=== PATIENT | female | born 1990 ===

== ENCOUNTER 2020-03-02 06:48 | Inpatient (IN) | payer OTHER ==
[2020-03-02] MEDS ORDERED: Sodium Chloride 0.9% 10 ML Syringe FLUSH PRN (08:00)
[2020-03-02] MEDS ORDERED: Lidocaine 1% 50 ML MDV INJECT PRN (08:00)
[2020-03-02] MEDS ORDERED: Oxytocin/0.9 % Sodium Chloride 30 UNIT/500 ML BAG IV SCH ×2 (08:00→17:45)
[2020-03-02] MEDS ORDERED: Water For Irrigation,Sterile 1,000 ML Container IRR PRN (08:00)
[2020-03-02] MEDS ORDERED: Sodium Chloride 0.9% 2.5 ML Syringe FLUSH PRN (08:00)
[2020-03-02] MEDS ORDERED: Misoprostol 200 MCG Tab PO PRN (08:00)
[2020-03-02] MEDS ORDERED: Sodium Chloride 0.9% 10 ML SDV IV PRN (08:00)
[2020-03-02] MEDS ORDERED: Tranexamic Acid 1,000 MG in Sodium Chloride 0.9% 100 ML IV PRN (08:00)
[2020-03-02] MEDS ORDERED: Ondansetron 4 MG/2 ML SDV IVPUSH PRN (08:00)
[2020-03-02] MEDS ORDERED: Methylergonovine 0.2 MG/1 ML Amp IM PRN (08:00)
[2020-03-02] MEDS ORDERED: Butorphanol 1 MG/ML SDV IVPUSH PRN (08:00)
[2020-03-02] MEDS ORDERED: Carboprost Tromethamine 250 MCG/1 ML Amp IM PRN (08:00)
--- NOTE | 2020-03-02 08:49 | PCM.LDHP ---
L&D History of Present Illness - General Date of Service: 03/02/20 Admit Problem/Dx: Patient Status Order with Admit Dx/Problem 03/02/20 07:08 Patient Status [ADT] Routine 03/02/20 08:00 Patient Status [ADT] Routine Admission Diagnosis/Problem Admission Diagnosis/Problem 03/02/20 08:43 Marybeth is a 29 yo at 40+3 weeks gestation (RAD[facility] 02/28/2020) that presents to L&D today with C/O leaking of clear fluid and increasing intermittent uterine cramping. Reports adequate movement. Denies jung vaginal bleeding at this time. B pos, RI, GBS neg. EFW via [place] 7-8 lbs. Pertinent medical history includes: hypothyroidism. NKDA. Medications: PNV, levothyroxine 62.5 mg/day. Patient has no other complaints or concerns at this time. Source of Information: Patient History Limitations: Reports: No Limitations - Related Data Allergies/Adverse Reactions: Allergies Allergy/AdvReac Type Severity Reaction Status Date / Time No Known Allergies Allergy Verified 02/14/20 16:11 Home Medications: Home Meds Levothyroxine 62.5 mcg PO ACBREAKFAST 02/14/20 [History] Pnv No.95/Ferrous Fum/Folic AC [ Vitamin Tablet] 1 each PO DAILYBH 02/14/20 [History] Past Medical History HEENT History: Reports: None Cardiovascular History: Reports: None Respiratory History: Reports: None Gastrointestinal History: Reports: None Genitourinary History: Reports: None VALUATION CONSULTANT History: Reports: : 1 Para: 0 LMP (Approximate): Musculoskeletal History: Reports: None Neurological History: Reports: None Psychiatric History: Reports: None Endocrine/Metabolic History: Reports: Hypothyroidism Hematologic History: Reports: None Immunologic History: Reports: None Oncologic (Cancer) History: Reports: None Dermatologic History: Reports: None - Infectious Disease History Infectious Disease History: Reports: None - Past Surgical History HEENT Surgical History: Reports: None Cardiovascular Surgical History: Reports: None GI Surgical History: Reports: None Female Surgical History: Reports: None Musculoskeletal Surgical History: Reports: None Social & Family History - Family History HEENT: Reports: None Cardiac: Reports: Hypertension Respiratory: Reports: None GI: Reports: None : Reports: None OBGYN: Reports: None Musculoskeletal: Reports: None Neurological: Reports: None Psychiatric: Reports: None Endocrine/Metabolic: Reports: Diabetes, type II Hematologic: Reports: None Dermatologic: Reports: None Oncologic: Reports: None - Tobacco Use Tobacco Use Status *Q: Never Tobacco User Second Hand Smoke Exposure: No - Caffeine Use Caffeine Use: Reports: None - Recreational Drug Use Recreational Drug Use: No H&P Review of Systems - Review of Systems: Review Of Systems: Comprehensive ROS is negative, except as noted in HPI. General: Reports: No Symptoms HEENT: Reports: No Symptoms Pulmonary: Reports: No Symptoms Cardiovascular: Reports: No Symptoms Gastrointestinal: Reports: No Symptoms Genitourinary: Reports: No Symptoms Musculoskeletal: Reports: No Symptoms Skin: Reports: No Symptoms Psychiatric: Reports: No Symptoms Neurological: Reports: No Symptoms Hematologic/Lymphatic: Reports: No Symptoms Immunologic: Reports: No Symptoms L&D Exam - Exam Exam: See Below - Vital Signs Vital Signs: T 97.0; HR 65; RR 16; BP 113/78 (86); 99% on RA. Weight: 196 lb - OB Specific Fundal Height In cm: 39 Contraction Duration (sec): 60-90 Contraction Intensity: Mild to Moderate Movement: Active Heart Tones: Present Heart Tones per Min: 140 Heart Rate (FHR) Variability: Moderate (6-25 bmp) Presentation: Vertex (Confirmed via handheld TAUS) - Moore Score Moore Score Cervix Position: Posterior Moore Score Consistency: Firm Moore Score Effacement: 31-50% Moore Score Dilation: 1-2 cm Moore Score 's Station: -1 ,0 Moore Score Total: 4 - Exam General: Alert, Oriented, Cooperative HEENT: PERRLA, Conjunctiva Clear, EACs Clear, EOMI, Hearing Intact, Mucosa Moist & [place], Nares Patent, Normal Nasal Septum, Posterior Pharynx Clear, TMs Clear Neck: Supple, Trachea Midline Lungs: Clear to Auscultation, Normal Respiratory Effort Cardiovascular: Regular Rate, Regular Rhythm GI/Abdominal Exam: Normal Bowel Sounds, Soft, Non-Tender, Pelvis Stable Rectal Exam: Deferred Genitourinary: Normal external exam, Normal bimanual exam, Enlarged uterus (Gravid uterus), Other (Amniotic fluid leakage, confirmed with Amnisure) Back Exam: Normal Inspection, Full Range of Motion Extremities: Normal Inspection, Normal Range of Motion, Non-Tender, No Pedal Edema, Normal Capillary Refill Skin: Warm, Dry, Intact Neurological: Cranial Nerves Intact, Reflexes Equal Bilateral Psychiatric: Alert, Normal Affect, Normal Mood - Patient Data Lab Results Last 24 hrs: Laboratory Results - last 24 hr 03/02/20 03/02/20 Range/Units 06:50 06:55 Membrane Rupture POSITIVE SARS-CoV-2 RNA (DIEGO) NEGATIVE (NEGATIVE) - Problem List (1) SROM (spontaneous rupture of membranes) SNOMED Code(s): 211659189 ICD Code: [id number] - Status: Acute Priority: High Current Visit: Yes (2) 40 weeks gestation of SNOMED Code(s): 74717736 ICD Code: Z3A.40 - 40 WEEKS GESTATION OF Status: Acute Priority: High Current Visit: Yes Problem List Initiated/Reviewed/Updated: Yes Orders Last 24hrs: Active Orders 24 hr Category Date Time Status Patient Status [ADT] Routine ADT 03/02/20 08:00 Active Heart Tones [RC] CONTINUOUS Care 03/02/20 08:00 Active Non Stress Test [RC] PER UNIT ROUTINE Care 03/02/20 07:08 Active May Shower [RC] ASDIRECTED Care 03/02/20 08:00 Active Notify Provider [RC] PRN Care 03/02/20 08:00 Active Up ad Jazz [RC] ASDIRECTED Care 03/02/20 07:08 Active Vaginal Exam [RC] Click to Edit Care 03/02/20 07:08 Active Vital Signs [RC] PER UNIT ROUTINE Care 03/02/20 07:08 Active Regular Diet [DIET] Diet 03/02/20 Breakfast Active CBC W/O DIFF,HEMOGRAM [HEME] Routine Lab 03/02/20 08:00 Ordered RPR (SYPHILIS SERO) W/ RFLX [REF] Routine Lab 03/02/20 08:00 Ordered TYPE AND SCREEN [BBK] Routine Lab 03/02/20 08:00 Ordered Butorphanol [Stadol] Med 03/02/20 08:00 Active 1 mg IVPUSH Q1H PRN Carboprost Tromethamine [Hemabate DS] Med 03/02/20 08:00 Active 250 mcg IM ASDIRECTED PRN Lactated Ringers [Ringers, Lactated] 1,000 ml Med 03/02/20 08:00 Active IV ASDIRECTED Lidocaine 1% [Xylocaine 1%] Med 03/02/20 08:00 Active 50 ml INJECT ONETIME PRN Methylergonovine [Methergine] Med 03/02/20 08:00 Active 0.2 mg IM ASDIRECTED PRN Ondansetron [Zofran] Med 03/02/20 08:00 Active 4 mg IVPUSH Q6H PRN Oxytocin/0.9 % Sodium Chloride [Oxytocin 30 Unit/500 ML Med 03/02/20 08:00 Active -NS] 30 unit in 500 ml IV TITRATE Sodium Chloride 0.9% [Normal Saline] Med 03/02/20 08:00 Active 10 ml IV ASDIRECTED PRN Sodium Chloride 0.9% [Saline Flush] Med 03/02/20 08:00 Active 10 ml FLUSH ASDIRECTED PRN Sodium Chloride 0.9% [Saline Flush] Med 03/02/20 08:00 Active 2.5 ml FLUSH ASDIRECTED PRN Tranexamic Acid [Cyklokapron] 1,000 mg Med 03/02/20 08:00 Active Sodium Chloride 0.9% [Normal Saline] 100 ml IV ONETIME Water For Irrigation,Sterile [Sterile Water for Med 03/02/20 08:00 Active Irrigation] 1,000 ml IRR ASDIRECTED PRN miSOPROStoL [Cytotec] Med 03/02/20 08:00 Active 200 mcg PO ONETIME PRN Scalp Electrode [WOMSER] Per Unit Routine Oth 03/02/20 08:00 Ordered Peripheral IV Insertion Adult [OM.PC] Routine Oth 03/02/20 08:00 Ordered Resuscitation Status Routine Resus Stat 03/02/20 07:07 Ordered Medication Orders Butorphanol Tartrate (Stadol) 1 mg IVPUSH Q1H PRN PRN Reason: Pain Carboprost Tromethamine (Hemabate Ds) 250 mcg IM ASDIRECTED PRN PRN Reason: Post Hemorrhage Lactated Ringer's (Ringers, Lactated) 1,000 mls @ 150 mls/hr IV ASDIRECTED NIRAJ Oxytocin/Sodium Chloride (Oxytocin 30 Unit/500 Ml-Ns) 30 unit in 500 mls @ 999 mls/hr IV TITRATE NIRAJ Tranexamic Acid 1,000 mg/ (Sodium Chloride) 110 mls @ 660 mls/hr IV ONETIME PRN PRN Reason: Bleeding Lidocaine HCl (Xylocaine 1%) 50 ml INJECT ONETIME PRN PRN Reason: Laceration repair Methylergonovine Maleate (Methergine) 0.2 mg IM ASDIRECTED PRN PRN Reason: Post Hemorrhage Misoprostol (Cytotec) 200 mcg PO ONETIME PRN PRN Reason: Post Hemorrhage Ondansetron HCl (Zofran) 4 mg IVPUSH Q6H PRN PRN Reason: Nausea/Vomiting Sodium Chloride (Saline Flush) 10 ml FLUSH ASDIRECTED PRN PRN Reason: Keep Vein Open Sodium Chloride (Saline Flush) 2.5 ml FLUSH ASDIRECTED PRN PRN Reason: Keep Vein Open Sodium Chloride (Normal Saline) 10 ml IV ASDIRECTED PRN PRN Reason: IV Use Sterile Water (Sterile Water For Irrigation) 1,000 ml IRR ASDIRECTED PRN PRN Reason: delivery Assessment/Plan Comment:: SROM confirmed via Amnisure. Admit for observation in anticipation of of term viable . FHR Cat I. Spontaneous contractions noted. Expectant management, reassess cervical dilation ~1030 am. If no change has been make, may administer cytotec per orders. May ambulate and hydrotherapy as desired after reactive NST achieved; repeat NST per orders. May receive epidural if desired between 5-6 cm. See new orders. Dr. Carmona notified and agreeable with POC.
[2020-03-02] MEDS ORDERED: Terbutaline 1 MG/ML SDV SUBCUT PRN (17:39)
[2020-03-02] MEDS ORDERED: Levothyroxine 125 MCG Tab PO SCH (18:15)
[2020-03-02] MEDS: Lactated Ringers 1,000 ML IV SCH (19:00)
[2020-03-02] MEDS ORDERED: fentaNYL 100 MCG/2 ML SDV ONE (22:42)
[2020-03-02] MEDS ORDERED: Ropivacaine HCl/PF 100 ML ONE (22:42)
--- NOTE | 2020-03-02 23:05 | PCM.PREANE ---
Preanesthetic Assessment - Anesthesia/Transfusion/Family Hx Anesthesia History: No Prior Anesthesia Family History of Anesthesia Reaction: No - Physical Assessment NPO Status Date: 03/02/20 NPO Status Time: 18:00 Height: 1.68 m Weight: 88.904 kg ASA Class: 2 - Lab Values: Laboratory Last Values WBC 10.07 K/uL (4.0-11.0) 03/02/20 08:05 RBC 4.36 M/uL (4.30-5.90) 03/02/20 08:05 Hgb 12.8 g/dL (12.0-16.0) 03/02/20 08:05 Hct 38.3 % (36.0-46.0) 03/02/20 08:05 MCV 87.8 fL (80.0-98.0) 03/02/20 08:05 MCH 29.4 pg (27.0-32.0) 03/02/20 08:05 MCHC 33.4 g/dL (31.0-37.0) 03/02/20 08:05 RDW Std Deviation 45.6 fl (28.0-62.0) 03/02/20 08:05 RDW Coeff of Dot 14 % (11.0-15.0) 03/02/20 08:05 Plt Count 251 K/uL (150-400) 03/02/20 08:05 MPV 12.40 fL (7.40-12.00) H 03/02/20 08:05 Nucleated RBC % 0.0 /100WBC 03/02/20 08:05 Nucleated RBCs # 0 K/uL 03/02/20 08:05 Membrane Rupture POSITIVE 03/02/20 06:55 SARS-CoV-2 RNA ([place]) NEGATIVE (NEGATIVE) 03/02/20 06:50 Blood Type B POSITIVE 03/02/20 08:05 Antibody Screen NEGATIVE 03/02/20 08:05 - Allergies Allergies/Adverse Reactions: Allergies Allergy/AdvReac Type Severity Reaction Status Date / Time No Known Allergies Allergy Verified 02/14/20 16:11 - Acknowledgements Anesthesia Type Planned: Epidural Pt an Appropriate Candidate for the Planned Anesthesia: Yes Alternatives and Risks of Anesthesia Discussed w Pt/Guardian: Yes Pt/Guardian Understands and Agrees with Anesthesia Plan: Yes PreAnesthesia Questionnaire HEENT History: Reports: None Cardiovascular History: Reports: None Respiratory History: Reports: None Gastrointestinal History: Reports: None Genitourinary History: Reports: None BRAND STRATEGIST History: Reports: Musculoskeletal History: Reports: None Neurological History: Reports: None Psychiatric History: Reports: None Endocrine/Metabolic History: Reports: Hypothyroidism Hematologic History: Reports: None Immunologic History: Reports: None Oncologic (Cancer) History: Reports: None Dermatologic History: Reports: None - Infectious Disease History Infectious Disease History: Reports: None - Past Surgical History HEENT Surgical History: Reports: None Cardiovascular Surgical History: Reports: None GI Surgical History: Reports: None Female Surgical History: Reports: None Musculoskeletal Surgical History: Reports: None - SUBSTANCE USE Tobacco Use Status *Q: Never Tobacco User Second Hand Smoke Exposure: No Recreational Drug Use History: No - HOME MEDS Home Medications: Home Meds Levothyroxine 62.5 mcg PO ACBREAKFAST 02/14/20 [History] Pnv No.95/Ferrous Fum/Folic AC [ Vitamin Tablet] 1 each PO DAILYBH 02/14/20 [History] - CURRENT (IN HOUSE) MEDS Current Meds: Current Medications Butorphanol Tartrate (Stadol) 1 mg IVPUSH Q1H PRN PRN Reason: Pain Last Admin: 03/02/20 20:47 Dose: 1 mg Documented by: Carboprost Tromethamine (Hemabate Ds) 250 mcg IM ASDIRECTED PRN PRN Reason: Post Hemorrhage Lactated Ringer's (Ringers, Lactated) 1,000 mls @ 150 mls/hr IV ASDIRECTED NIRAJ Last Admin: 03/02/20 19:00 Dose: 150 mls/hr Documented by: Oxytocin/Sodium Chloride (Oxytocin 30 Unit/500 Ml-Ns) 30 unit in 500 mls @ 999 mls/hr IV TITRATE NIRAJ Tranexamic Acid 1,000 mg/ (Sodium Chloride) 110 mls @ 660 mls/hr IV ONETIME PRN PRN Reason: Bleeding Oxytocin/Sodium Chloride (Oxytocin 30 Unit/500 Ml-Ns) 30 unit in 500 mls @ 2 mls/hr IV TITRATE NIRAJ; Protocol Last Titration: 03/02/20 19:35 Dose: 4 munits/min, 4 mls/hr Documented by: Levothyroxine Sodium (Levothyroxine) 62.5 mcg PO ACBREAKFAST NIRAJ Lidocaine HCl (Xylocaine 1%) 50 ml INJECT ONETIME PRN PRN Reason: Laceration repair Methylergonovine Maleate (Methergine) 0.2 mg IM ASDIRECTED PRN PRN Reason: Post Hemorrhage Misoprostol (Cytotec) 200 mcg PO ONETIME PRN PRN Reason: Post Hemorrhage Ondansetron HCl (Zofran) 4 mg IVPUSH Q6H PRN PRN Reason: Nausea/Vomiting Sodium Chloride (Saline Flush) 10 ml FLUSH ASDIRECTED PRN PRN Reason: Keep Vein Open Sodium Chloride (Saline Flush) 2.5 ml FLUSH ASDIRECTED PRN PRN Reason: Keep Vein Open Sodium Chloride (Normal Saline) 10 ml IV ASDIRECTED PRN PRN Reason: IV Use Sterile Water (Sterile Water For Irrigation) 1,000 ml IRR ASDIRECTED PRN PRN Reason: delivery Terbutaline Sulfate (Brethine) 0.25 mg SUBCUT ASDIRECTED PRN PRN Reason: Tacysystole Discontinued Medications Fentanyl (Sublimaze) Confirm Administered Dose 100 mcg .ROUTE .STK-MED ONE Stop: 03/02/20 22:43 Ropivacaine (Naropin 0.2%) Confirm Administered Dose 100 mls @ as directed .ROUTE .STK-MED ONE Stop: 03/02/20 22:43
--- NOTE | 2020-03-02 23:09 | PCM.PRNOTE ---
- Free Text/Narrative Note: Anes Note Patient requests epidural for L&D. Sitting position. mohs surgeon used. Level L3-L4 midline approach, sterile technique. Chloraprep scrub to lumbar area. Sterile fenestrated drape applied. Epidural space easily achieved single attempt with ease using SASKIA technique. SASKIA at 3 cm. Cath threaded 5 cm wtih ease. Sterile clear adhesive dressing applied. 2345 Test 3 cc 1.5% lido with epi negative. 2348 Load 10 cc0.2% ropivicaine with 1 mcg cc fentanyl in slow divided doses. 2255 Pump started with 90 cc same solution. Rate is 8 cc hr with 6 cc q 20 min prn bolus. Marquez well. Time with patient [id number] Don Caballero TRAFFIC INCIDENT MANAGEMENT MANAGER
[2020-03-03] MEDS: Lactated Ringers 1,000 ML IV SCH ×3 (04:55→23:26)
[2020-03-03] MEDS ORDERED: Ropivacaine HCl/PF 100 ML ONE (09:23)
[2020-03-03] MEDS ORDERED: fentaNYL 100 MCG/2 ML SDV ONE ×2 (09:23→11:41)
--- NOTE | 2020-03-03 09:34 | PCM.PRNOTE ---
- Free Text/Narrative Note: Anes NOte Epidural infusion is complee. A new bag of 0.2% ropvicaine with 1 mcg cc fentanyl added was placed. A new rate of 4 cc hr with 4 cc q 20 min prn rate was set per request of nursing staff. Nursing says this patient is too comfortable and does not feel contractions enough to push effectively. Time with patient [id number] Don Caballero CRNA
[2020-03-03] MEDS ORDERED: Ampicillin 2 GM in Sodium Chloride 0.9% 100 ML IV ONE (11:06)
[2020-03-03] MEDS ORDERED: Ampicillin 1 GM in Sodium Chloride 0.9% 50 ML IV SCH (11:15)
[2020-03-03] MEDS ORDERED: Lidocaine 2% with EPINEPHrine 1:100,000 20 ML MDV ONE (11:39)
[2020-03-03] MEDS ORDERED: Morphine PF 10 MG/10 ML SDV ONE (11:41)
[2020-03-03] MEDS ORDERED: Citric Acid/Sodium Citrate Solution 30 ML Cup PO ONE (11:44)
[2020-03-03] MEDS ORDERED: ceFAZolin 2 GM in Premix Bag 1 BAG IV ONE (11:44)
[2020-03-03] MEDS ORDERED: Ketorolac 30 MG/ML SDV ONE (11:51)
[2020-03-03] MEDS ORDERED: Ondansetron 4 MG/2 ML SDV ONE (11:51)
[2020-03-03] MEDS ORDERED: Oxytocin 10 Units/1 ML SDV ONE (11:51)
[2020-03-03] MEDS ORDERED: Acetaminophen/oxyCODONE 325-5 MG Tab PO PRN ×2 (12:30→13:16)
[2020-03-03] MEDS ORDERED: Nalbuphine 10 MG/1 ML Vial IVPUSH PRN (12:30)
[2020-03-03] MEDS ORDERED: fentaNYL 100 MCG/2 ML SDV IVPUSH PRN (12:30)
[2020-03-03] MEDS ORDERED: diphenhydrAMINE 50 MG/ML SDV IVPUSH PRN (13:16)
[2020-03-03] MEDS ORDERED: Ondansetron 4 MG/2 ML SDV IVPUSH PRN (13:16)
[2020-03-03] MEDS ORDERED: Methylergonovine 0.2 MG/1 ML Amp IM PRN (13:16)
[2020-03-03] MEDS ORDERED: Bisacodyl 10 MG Supp RECTAL PRN (13:16)
[2020-03-03] MEDS ORDERED: Tranexamic Acid 1,000 MG in Sodium Chloride 0.9% 100 ML IV PRN (13:16)
[2020-03-03] MEDS ORDERED: Misoprostol 200 MCG Tab RECTAL PRN (13:16)
[2020-03-03] MEDS ORDERED: Oxytocin 10 Units/1 ML SDV IM PRN (13:16)
[2020-03-03] MEDS ORDERED: Lactated Ringers 1,000 ML IV SCH (13:30)
--- NOTE | 2020-03-03 13:39 | PCM.DEL ---
L & D Note - General Info Date of Service: 03/03/20 Mother's Due Date: 03/06/20 - Delivery Note Labor: Spontaneous Delivery Outcome: Livebirth Infant Delivery Method: Primary Presentation: Vertex (Confirmed via handheld TAUS) Nuchal Cord: Reduced Anesthesia Type: None, Spinal Amniotic Fluid Description: Meconium Stained Laceration: None Placenta: Intact, Spontaneous Estimated Blood Loss: 200 Score 1 min: 8 Score 5 min: 9 Delivery Comments (Free Text/Narrative):: 29YO G1 now P1 s/p primary low transverse due to failure to descent at 40+4w GA Patient came ruptured 03/02/20 at 8am. Progressed on her own to full dilation. But station would not progress pass 0. C section occurred 5hrs trying several maneuver to help the infant descent. Delivery uncomplicated. Baby found to be asynclitic. Induction Criteria - Induction Gestational Age >/= 39 wks: Yes Reassuring Monitoring Strip: No Absence of Tachy Systole: No - Augmentation Reassuring Monitoring Strip: No Absence of Tachy Systole: No - General Info Date of Service: 03/03/20 Admission Dx/Problem (Free Text): 29YO G1 now P1 s/p primary low transverse due to failure to descent at 40+4w GA Patient came ruptured 03/02/20 at 8am. Progressed on her own to full dilation. But station would not progress pass 0. Functional Status: Reports: Pain Controlled - Review of Systems General: Reports: No Symptoms HEENT: Reports: No Symptoms Pulmonary: Reports: No Symptoms Cardiovascular: Reports: No Symptoms Gastrointestinal: Reports: No Symptoms Genitourinary: Reports: No Symptoms Musculoskeletal: Reports: No Symptoms Skin: Reports: No Symptoms Neurological: Reports: No Symptoms Psychiatric: Reports: No Symptoms - Patient Data Weight - Most Recent: 88.904 kg Med Orders - Current: Current Medications Bisacodyl (Dulcolax) 10 mg RECTAL ONETIME PRN PRN Reason: Constipation Butorphanol Tartrate (Stadol) 1 mg IVPUSH Q1H PRN PRN Reason: Pain Last Admin: 03/02/20 20:47 Dose: 1 mg Documented by: Carboprost Tromethamine (Hemabate Ds) 250 mcg IM ASDIRECTED PRN PRN Reason: Post Hemorrhage Diphenhydramine HCl (Benadryl) 25 mg IVPUSH Q6H PRN PRN Reason: Itching or Nausea Docusate Sodium (Colace) 100 mg PO BID [facility] Emollient Ointment (Lansinoh Hpa) 0 gm TOP ASDIRECTED PRN PRN Reason: Sore Nipples Fentanyl (Sublimaze) 50 mcg IVPUSH Q5M PRN PRN Reason: Pain (severe 7-10) Lactated Ringer's (Ringers, Lactated) 1,000 mls @ 150 mls/hr IV ASDIRECTED [facility] Last Admin: 03/03/20 11:20 Dose: 150 mls/hr Documented by: Oxytocin/Sodium Chloride (Oxytocin 30 Unit/500 Ml-Ns) 30 unit in 500 mls @ 999 mls/hr IV TITRATE [facility] Tranexamic Acid 1,000 mg/ (Sodium Chloride) 110 mls @ 660 mls/hr IV ONETIME PRN PRN Reason: Bleeding Oxytocin/Sodium Chloride (Oxytocin 30 Unit/500 Ml-Ns) 30 unit in 500 mls @ 2 mls/hr IV TITRATE [facility]; Protocol Last Titration: 03/03/20 06:15 Dose: 10 munits/min, 10 mls/hr Documented by: Lactated Ringer's (Ringers, Lactated) 1,000 mls @ 125 mls/hr IV ASDIRECTED [facility] Tranexamic Acid 1,000 mg/ (Sodium Chloride) 110 mls @ 660 mls/hr IV ONETIME PRN PRN Reason: Bleeding Ibuprofen (Motrin) 800 mg PO Q8H PRN PRN Reason: mild pain or fever Ketorolac Tromethamine (Toradol) 30 mg IVPUSH Q6H [facility] Stop: 03/04/20 13:31 Levothyroxine Sodium (Levothyroxine) 62.5 mcg PO ACBREAKFAST [facility] Lidocaine HCl (Xylocaine 1%) 50 ml INJECT ONETIME PRN PRN Reason: Laceration repair Methylergonovine Maleate (Methergine) 0.2 mg IM ASDIRECTED PRN PRN Reason: Post Hemorrhage Methylergonovine Maleate (Methergine) 0.2 mg IM ONETIME PRN PRN Reason: Excessive Vaginal Bleeding Misoprostol (Cytotec) 200 mcg PO ONETIME PRN PRN Reason: Post Hemorrhage Misoprostol (Cytotec) 1,000 mcg RECTAL ONETIME PRN PRN Reason: excessive bleeding Ondansetron HCl (Zofran) 4 mg IVPUSH Q6H PRN PRN Reason: Nausea/Vomiting Ondansetron HCl (Zofran) 4 mg IVPUSH Q4H PRN PRN Reason: Nausea/Vomiting Oxycodone/Acetaminophen (Percocet 325-5 Mg) 1 tab PO ONETIME PRN PRN Reason: Pain (moderate 4-6) Oxycodone/Acetaminophen (Percocet 325-5 Mg) 1 tab PO Q4H PRN PRN Reason: Pain (moderate 4-6) Oxycodone/Acetaminophen (Percocet 325-5 Mg) 2 tab PO Q4H PRN PRN Reason: Pain (moderate 4-6) Oxytocin (Pitocin) 10 unit IM ASDIRECTED PRN PRN Reason: Excessive Vaginal Bleeding Sodium Chloride (Saline Flush) 10 ml FLUSH ASDIRECTED PRN PRN Reason: Keep Vein Open Sodium Chloride (Saline Flush) 2.5 ml FLUSH ASDIRECTED PRN PRN Reason: Keep Vein Open Sodium Chloride (Normal Saline) 10 ml IV ASDIRECTED PRN PRN Reason: IV Use Sterile Water (Sterile Water For Irrigation) 1,000 ml IRR ASDIRECTED PRN PRN Reason: delivery Terbutaline Sulfate (Brethine) 0.25 mg SUBCUT ASDIRECTED PRN PRN Reason: Tacysystole Discontinued Medications Citric Acid/Sodium Citrate (Bicitra Solution) 30 ml PO ONETIME ONE Stop: 03/03/20 11:45 Fentanyl (Sublimaze) Confirm Administered Dose 100 mcg .ROUTE .STK-MED ONE Stop: 03/02/20 22:43 Fentanyl (Sublimaze) Confirm Administered Dose 100 mcg .ROUTE .STK-MED ONE Stop: 03/03/20 09:24 Fentanyl (Sublimaze) Confirm Administered Dose 100 mcg .ROUTE .STK-MED ONE Stop: 03/03/20 11:42 Ropivacaine (Naropin 0.2%) Confirm Administered Dose 100 mls @ as directed .ROUTE .STK-MED ONE Stop: 03/02/20 22:43 Ropivacaine (Naropin 0.2%) Confirm Administered Dose 100 mls @ as directed .ROUTE .STK-MED ONE Stop: 03/03/20 09:24 Ampicillin Sodium 2 gm/ Sodium (Chloride) 100 mls @ 200 mls/hr IV ONETIME ONE Stop: 03/03/20 11:35 Last Admin: 03/03/20 11:17 Dose: 200 mls/hr Documented by: Ampicillin Sodium 1 gm/ Sodium (Chloride) 50 mls @ 100 mls/hr IV Q4H NIRAJ Cefazolin Sodium/Dextrose 2 gm (/ Premix) 50 mls @ 100 mls/hr IV ONETIME ONE Stop: 03/03/20 12:13 Ketorolac Tromethamine (Toradol) Confirm Administered Dose 30 mg .ROUTE .STK-MED ONE Stop: 03/03/20 11:52 Morphine Sulfate (Duramorph Pf) Confirm Administered Dose 10 mg .ROUTE .STK-MED ONE Stop: 03/03/20 11:42 Ondansetron HCl (Zofran) Confirm Administered Dose 4 mg .ROUTE .STK-MED ONE Stop: 03/03/20 11:52 Oxytocin (Pitocin) Confirm Administered Dose 20 unit .ROUTE .STK-MED ONE Stop: 03/03/20 11:52 - Exam General: Alert, Oriented HEENT: Pupils Equal, Pupils Reactive, EOMI, Mucous Membr. Moist/[place] Neck: Supple Lungs: Clear to Auscultation, Normal Respiratory Effort Cardiovascular: Regular Rate, Regular Rhythm GI/Abdominal Exam: Normal Bowel Sounds, Soft, Non-Tender, No Organomegaly, No Distention, No Abnormal Bruit, No Mass, Pelvis Stable (Female) Exam: Normal External Exam, Normal Speculum Exam, Normal Bimanual Exam Back Exam: Normal Inspection, Full Range of Motion Extremities: Normal Inspection, Normal Range of Motion, Non-Tender, No Pedal Edema, Normal Capillary Refill Skin: Warm, Dry, Intact Wound/Incisions: Healing Well Neurological: No New Focal Deficit Psy/Mental Status: Alert, Normal Affect, Normal Mood - Problem List & Annotations (1) Delivery by section SNOMED Code(s): 576230398 Code(s): [id number] - Status: Acute Priority: Medium Current Visit: Yes - Problem List Review Problem List Initiated/Reviewed/Updated: Yes - My Orders Last 24 Hours: My Active Orders 03/03/20 13:16 Acetaminophen/oxyCODONE [Percocet 325-5 MG] 1 tab PO Q4H PRN Acetaminophen/oxyCODONE [Percocet 325-5 MG] 2 tab PO Q4H PRN Ibuprofen [Motrin] 800 mg PO Q8H PRN Lanolin [Lansinoh HPA] See Dose Instructions TOP ASDIRECTED PRN Methylergonovine [Methergine] 0.2 mg IM ONETIME PRN Ondansetron [Zofran] 4 mg IVPUSH Q4H PRN Oxytocin [Pitocin] 10 unit IM ASDIRECTED PRN Tranexamic Acid [Cyklokapron] 1,000 mg Sodium Chloride 0.9% [Normal Saline] 100 ml IV ONETIME bisacodyL [Dulcolax] 10 mg RECTAL ONETIME PRN diphenhydrAMINE [Benadryl] 25 mg IVPUSH Q6H PRN miSOPROStoL [Cytotec] 1,000 mcg RECTAL ONETIME PRN 03/03/20 13:17 Patient Status [ADT] Routine Ambulate [RC] PER UNIT ROUTINE Communication Order [RC] PER UNIT ROUTINE Communication Order [RC] PER UNIT ROUTINE Communication Order [RC] Per Unit Routine May Shower [RC] ASDIRECTED RT Incentive Spirometry [RC] Q2HWA Vital Signs [RC] PER UNIT ROUTINE Assess Lochia [WOMSER] Per Unit Routine Assess Uterine Involution [WOMSER] Per Unit Routine Breast Pump [WOMSER] Per Unit Routine Peripheral IV Discontinue [OM.PC] Routine Sequential Compression Device [OM.PC] Per Unit Routine 03/03/20 13:18 Antiembolic Devices [RC] PER UNIT ROUTINE 03/03/20 13:30 Ketorolac [Toradol] 30 mg IVPUSH Q6H Lactated Ringers @ 125 MLS/HR(1000ml) Lactated Ringers [Ringers, Lactated] 1,000 ml IV ASDIRECTED 03/03/20 21:00 Docusate Sodium [Colace] 100 mg PO BID 03/04/20 05:11 HEMOGLOBIN/HEMATOCRIT,HH [HEME] Timed - Plan Plan:: SROM confirmed via Amnisure. Admit for observation in anticipation of of term viable . FHR Cat I. Spontaneous contractions noted. Expectant management, reassess cervical dilation ~1030 am. If no change has been make, may administer cytotec per orders. May ambulate and hydrotherapy as desired after reactive NST achieved; repeat NST per orders. May receive epidural if desired between 5-6 cm. See new orders. Dr. Carmona notified and agreeable with POC. 03/03/20: 1:45pm C section occurred 5hrs after trying several maneuver to help the infant descent. Delivery uncomplicated. Baby found to be asynclitic.
--- NOTE | 2020-03-03 13:51 | PCM.POSTAN ---
POST ANESTHESIA ASSESSMENT - MENTAL STATUS Mental Status: Alert - RESPIRATORY Respiratory Status: Respiratory Rate WNL - CARDIOVASCULAR CV Status: Pulse Rate WNL - GASTROINTESTINAL GI Status: No Symptoms - POST OP HYDRATION Hydration Status: Adequate & Stable
[2020-03-03] MEDS: Ketorolac 30 MG/ML SDV IVPUSH SCH ×2 (16:30→18:55)
[2020-03-03] MEDS: Levothyroxine 125 MCG Tab PO SCH (17:48)
--- NOTE | 2020-03-03 18:38 | OR ---
SURGEON: Gi Perez MD DATE OF PROCEDURE: 03/03/2020 INDICATION FOR SURGERY: Term , spontaneous labor, failure to descend. PREOPERATIVE DIAGNOSIS: Term , spontaneous labor, failure to descend. POSTOPERATIVE DIAGNOSIS: Term , spontaneous labor, failure to descent. OPERATION: section. PRIMARY SURGEON: Gi Perez MD MEDICAL DIRECTOR/HEAD TEAM PHYSICIAN: Rosalino Carmona MD ANESTHESIA: Spinal. ESTIMATED BLOOD LOSS: 200 mL. URINE OUTPUT: 300 mL. DRAIN AND PACK: Alvarez catheter draining clear urine. SPECIMEN: None. FINDING: Live . DELIVERY DETAILS: Live after primary section. Gender, female. weight 3750 g. score; one minute 8, five minutes 9. Placenta delivery method, spontaneous. MATERNAL DELIVERY COMPLICATIONS: None. COMPLICATIONS: None. TECHNIQUE: Marybeth Quinteros was taken to the operating room. She was then transferred to the operating table and placed in the dorsal supine position with a leftward tilt. After adequate anesthesia was confirmed, she was prepped and draped in the usual sterile fashion. A time-out was completed. With IV fluid running and Alvarez catheter draining, a Pfannenstiel skin incision was made. The incision was carried down with the Bovie cautery through the subcutaneous tissue to the underlying rectus fascia. The rectus fascia was incised in the midline and then extended laterally with the Quinn scissors. The underlying rectus muscles were dissected off sharply and bluntly. The rectus muscles were then in the midline and the parietal peritoneum was opened. A bladder blade and Salamanca retractor were placed. The lower uterine segment was identified in the surgical field. A bladder flap was made and the lower uterine segment was incised in a transverse fashion. The incision was extended laterally with a cephalocaudal traction. The 's vertex was delivered atraumatically followed by the remainder of the infant. The cord was clamped and cut, and the infant handed off to the pediatric staff. Blood gas was collected. The placenta was delivered spontaneously. The uterus was then cleaned of all clots and debris. The uterine incision was reapproximated in a running locked stitch fashion utilizing 0 Vicryl. A second running stitch imbricating the first layer was performed utilizing another 0 Vicryl. Hemostasis was excellent. The gutter was cleared of all clots and debris. All operative sites were again examined and noted to be hemostatic. The retractors were removed. The subfascial layer had excellent hemostasis. The peritoneum was closed as well as the rectus muscle with a running stitch fashion utilizing 3-0 Vicryl. The rectus fascia was reapproximated with 0 Vicryl in a running stitch fashion. Subcutaneous tissue was closed with a running stitch utilizing another 3-0 Vicryl. Hemostasis was assured. The skin was then closed with 4-0 Monocryl in a subcuticular fashion. All lap, sponges, needle, and instrument counts were correct per the OR nursing staff. The patient was taken to the recovery room in a stable condition. Prior to the procedure, the patient had received 2 g of Ancef. RIYA JONES /[id number]
[2020-03-04] MEDS: Ketorolac 30 MG/ML SDV IVPUSH SCH ×4 (01:02→14:00)
[2020-03-04] MEDS: Docusate Sodium 100 MG Cap PO SCH ×3 (01:03→20:01)
[2020-03-04] MEDS: Lanolin 100% Cream 7 GM Tube TOP PRN (06:52)
--- NOTE | 2020-03-04 07:19 | PCM48HPAN ---
Post Anesthesia Note - EVALUATION WITHIN 48HRS OF ANESTHETIC Vital Signs in Normal Range: Yes Patient Participated in Evaluation: Yes Respiratory Function Stable: Yes Airway Patent: Yes Cardiovascular Function Stable: Yes Hydration Status Stable: Yes Pain Control Satisfactory: Yes Nausea and Vomiting Control Satisfactory: Yes Mental Status Recovered: Yes Vital Signs: Last Vital Signs Temp 36.4 C 03/04/20 00:00 Pulse 84 03/04/20 00:00 Resp 16 03/04/20 00:00 BP 108/56 L 03/04/20 00:00 Pulse Ox 96 03/04/20 00:00
[2020-03-04] MEDS: Levothyroxine 125 MCG Tab PO SCH (08:19)
--- NOTE | 2020-03-04 08:28 | PCM.PNPP ---
- General Info Date of Service: 03/04/20 Admission Dx/Problem (Free Text): 29YO G1 now P1 s/p primary low transverse due to failure to descent at 40+4w GA Patient came ruptured 03/02/20 at 8am. Progressed on her own to full dilation. But station would not progress pass 0. Functional Status: Reports: Pain Controlled, Tolerating Diet, Ambulating, Urinating - Review of Systems General: Reports: No Symptoms HEENT: Reports: No Symptoms Pulmonary: Reports: No Symptoms Cardiovascular: Reports: No Symptoms Gastrointestinal: Reports: No Symptoms Genitourinary: Reports: No Symptoms Musculoskeletal: Reports: No Symptoms Skin: Reports: No Symptoms Neurological: Reports: No Symptoms Psychiatric: Reports: No Symptoms - General Info Date of Service: 03/04/20 - Patient Data Vital Signs - Most Recent: Last Vital Signs Temp 36.4 C 03/04/20 00:00 Pulse 66 03/04/20 08:00 Resp 18 03/04/20 08:00 BP 102/56 L 03/04/20 08:00 Pulse Ox 98 03/04/20 08:00 Weight - Most Recent: 88.904 kg Lab Results - Last 24 Hours: Laboratory Results - last 24 hr 03/04/20 Range/Units 05:15 Hgb 10.7 L (12.0-16.0) g/dL Hct 32.0 L (36.0-46.0) % Med Orders - Current: Current Medications Bisacodyl (Dulcolax) 10 mg RECTAL ONETIME PRN PRN Reason: Constipation Butorphanol Tartrate (Stadol) 1 mg IVPUSH Q1H PRN PRN Reason: Pain Last Admin: 03/02/20 20:47 Dose: 1 mg Documented by: Carboprost Tromethamine (Hemabate Ds) 250 mcg IM ASDIRECTED PRN PRN Reason: Post Hemorrhage Diphenhydramine HCl (Benadryl) 25 mg IVPUSH Q6H PRN PRN Reason: Itching or Nausea Docusate Sodium (Colace) 100 mg PO BID NIRAJ Last Admin: 03/04/20 08:20 Dose: 100 mg Documented by: Emollient Ointment (Lansinoh Hpa) 0 gm TOP ASDIRECTED PRN PRN Reason: Sore Nipples Last Admin: 03/04/20 06:52 Dose: 7 gram Documented by: Fentanyl (Sublimaze) 50 mcg IVPUSH Q5M PRN PRN Reason: Pain (severe 7-10) Lactated Ringer's (Ringers, Lactated) 1,000 mls @ 150 mls/hr IV ASDIRECTED [facility] Last Admin: 03/03/20 23:26 Dose: 150 mls/hr Documented by: Oxytocin/Sodium Chloride (Oxytocin 30 Unit/500 Ml-Ns) 30 unit in 500 mls @ 999 mls/hr IV TITRATE [facility] Tranexamic Acid 1,000 mg/ (Sodium Chloride) 110 mls @ 660 mls/hr IV ONETIME PRN PRN Reason: Bleeding Oxytocin/Sodium Chloride (Oxytocin 30 Unit/500 Ml-Ns) 30 unit in 500 mls @ 2 mls/hr IV TITRATE [facility]; Protocol Last Titration: 03/03/20 06:15 Dose: 10 munits/min, 10 mls/hr Documented by: Lactated Ringer's (Ringers, Lactated) 1,000 mls @ 125 mls/hr IV ASDIRECTED [facility] Tranexamic Acid 1,000 mg/ (Sodium Chloride) 110 mls @ 660 mls/hr IV ONETIME PRN PRN Reason: Bleeding Ibuprofen (Motrin) 800 mg PO Q8H PRN PRN Reason: mild pain or fever Ketorolac Tromethamine (Toradol) 30 mg IVPUSH Q6H [facility] Stop: 03/04/20 13:31 Last Admin: 03/04/20 06:51 Dose: 30 mg Documented by: Levothyroxine Sodium (Levothyroxine) 62.5 mcg PO ACBREAKFAST [facility] Last Admin: 03/04/20 08:19 Dose: 62.5 mcg Documented by: Lidocaine HCl (Xylocaine 1%) 50 ml INJECT ONETIME PRN PRN Reason: Laceration repair Methylergonovine Maleate (Methergine) 0.2 mg IM ASDIRECTED PRN PRN Reason: Post Hemorrhage Methylergonovine Maleate (Methergine) 0.2 mg IM ONETIME PRN PRN Reason: Excessive Vaginal Bleeding Misoprostol (Cytotec) 200 mcg PO ONETIME PRN PRN Reason: Post Hemorrhage Misoprostol (Cytotec) 1,000 mcg RECTAL ONETIME PRN PRN Reason: excessive bleeding Ondansetron HCl (Zofran) 4 mg IVPUSH Q6H PRN PRN Reason: Nausea/Vomiting Ondansetron HCl (Zofran) 4 mg IVPUSH Q4H PRN PRN Reason: Nausea/Vomiting Oxycodone/Acetaminophen (Percocet 325-5 Mg) 1 tab PO ONETIME PRN PRN Reason: Pain (moderate 4-6) Oxycodone/Acetaminophen (Percocet 325-5 Mg) 1 tab PO Q4H PRN PRN Reason: Pain (moderate 4-6) Oxycodone/Acetaminophen (Percocet 325-5 Mg) 2 tab PO Q4H PRN PRN Reason: Pain (moderate 4-6) Oxytocin (Pitocin) 10 unit IM ASDIRECTED PRN PRN Reason: Excessive Vaginal Bleeding Sodium Chloride (Saline Flush) 10 ml FLUSH ASDIRECTED PRN PRN Reason: Keep Vein Open Sodium Chloride (Saline Flush) 2.5 ml FLUSH ASDIRECTED PRN PRN Reason: Keep Vein Open Sodium Chloride (Normal Saline) 10 ml IV ASDIRECTED PRN PRN Reason: IV Use Sterile Water (Sterile Water For Irrigation) 1,000 ml IRR ASDIRECTED PRN PRN Reason: delivery Terbutaline Sulfate (Brethine) 0.25 mg SUBCUT ASDIRECTED PRN PRN Reason: Tacysystole Discontinued Medications Citric Acid/Sodium Citrate (Bicitra Solution) 30 ml PO ONETIME ONE Stop: 03/03/20 11:45 Last Admin: 03/03/20 16:29 Dose: Not Given Documented by: Fentanyl (Sublimaze) Confirm Administered Dose 100 mcg .ROUTE .STK-MED ONE Stop: 03/02/20 22:43 Last Admin: 03/03/20 16:29 Dose: Not Given Documented by: Fentanyl (Sublimaze) Confirm Administered Dose 100 mcg .ROUTE .STK-MED ONE Stop: 03/03/20 09:24 Last Admin: 03/03/20 16:29 Dose: Not Given Documented by: Fentanyl (Sublimaze) Confirm Administered Dose 100 mcg .ROUTE .STK-MED ONE Stop: 03/03/20 11:42 Ropivacaine (Naropin 0.2%) Confirm Administered Dose 100 mls @ as directed .[address] ST[address]ETSTK-MED ONE Stop: 03/02/20 22:43 Last Admin: 03/03/20 16:29 Dose: Not Given Documented by: Ropivacaine (Naropin 0.2%) Confirm Administered Dose 100 mls @ as directed .ROUTE .STK-MED ONE Stop: 03/03/20 09:24 Last Admin: 03/03/20 16:29 Dose: Not Given Documented by: Ampicillin Sodium 2 gm/ Sodium (Chloride) 100 mls @ 200 mls/hr IV ONETIME ONE Stop: 03/03/20 11:35 Last Admin: 03/03/20 11:17 Dose: 200 mls/hr Documented by: Ampicillin Sodium 1 gm/ Sodium (Chloride) 50 mls @ 100 mls/hr IV Q4H NIRAJ Cefazolin Sodium/Dextrose 2 gm (/ Premix) 50 mls @ 100 mls/hr IV ONETIME ONE Stop: 03/03/20 12:13 Ketorolac Tromethamine (Toradol) Confirm Administered Dose 30 mg .ROUTE .STK-MED ONE Stop: 03/03/20 11:52 Morphine Sulfate (Duramorph Pf) Confirm Administered Dose 10 mg .ROUTE .STK-MED ONE Stop: 03/03/20 11:42 Ondansetron HCl (Zofran) Confirm Administered Dose 4 mg .ROUTE .STK-MED ONE Stop: 03/03/20 11:52 Oxytocin (Pitocin) Confirm Administered Dose 20 unit .ROUTE .STK-MED ONE Stop: 03/03/20 11:52 - Interaction Support Person: - Recovery Exam Fundal Tone: Firm Fundal Level: 1 Fingerbreadths Below Umbilicus Fundal Placement: Midline Lochia Amount: Scant Lochia Color: Rubra/Red Perineum Description: Intact, Minimal Bruising/Swelling Episiotomy/Laceration: None Bladder Status: Indwelling Catheter in Place Urinary Elimination: Indwelling Catheter - Exam General: Alert, Oriented, Cooperative, No Acute Distress Lungs: Clear to Auscultation, Normal Respiratory Effort Cardiovascular: Regular Rate, Regular Rhythm GI/Abdominal Exam: Soft, Pelvis Stable Extremities: Normal Inspection, Normal Range of Motion, Non-Tender, No Pedal Edema Skin: Warm, Dry, Intact Wound/Incisions: Healing Well, Dressing Dry and Intact Neurological: No New Focal Deficit, Normal Speech, Normal Tone, Strength Equal Bilateral, Sensation Intact Psy/Mental Status: Alert, Normal Affect, Normal Mood - Problem List & Annotations (1) Delivery by section SNOMED Code(s): 147118601 Code(s): [id number] - Status: Acute Priority: High Current Visit: Yes - Problem List Review Problem List Initiated/Reviewed/Updated: Yes - Assessment Assessment:: PPD#1 A: VSS, AF, FF 2BU, lochia small, chavez to BSB, urine light mirela color. Up out of bed but felt dizzy. Stable. P: Routine pp plan of care. Advised to increase po hydration. Needs to OOB and walking today. If stable may D/C in am. - Plan Plan:: SROM confirmed via [facility]. Admit for observation in anticipation of of term viable . FHR Cat I. Spontaneous contractions noted. Expectant management, reassess cervical dilation ~1030 am. If no change has been make, may administer cytotec per orders. May ambulate and hydrotherapy as desired after reactive NST achieved; repeat NST per orders. May receive epidural if desired between 5-6 cm[address] new orders. Dr. Carmona notified and agreeable with POC. 03/03/20: 1:45pm C section occurred 5hrs after trying several maneuver to help the desce nt. Delivery uncomplicated. Baby found to be asynclitic.
[2020-03-04] MEDS: Ibuprofen 800 MG Tab PO PRN (20:01)
--- NOTE | 2020-03-05 06:10 | PCM.DCSUM1 ---
Discharge Summary - Hospital Course Free Text/Narrative:: Marybeth is a 29yo PPD2 s/p primary LTCS D/T failure to descent (asynclitism) at 40+4 weeks gestation ([facility] 02/28/2020). B pos, RI, GBS neg. Hgb: 10.7 (02/02/2020), denies C/O HAs, dizziness, SOB, or any other problems. Patient reports moderate generalized low abdominal pain alleviated with ibuprofen and Percocet. Abdominal binder and LTCS dressing removed for inspection; incision approximated and hemostatic, scant-small old blood noted on dressing; dressing and abdominal binder replaced, plan to remove with shower today. Uterus firm U- 1, moderate to large vaginal bleeding noted, no clots. Ambulating, voiding, eating, hydrating independently. BFing with syringe supplementation. Patient denies any other complaints or concerns at this time. Diagnosis: Stroke: No - Discharge Data Discharge Date: 03/05/20 Discharge Disposition: Home, Self-Care 01 Condition: Good - Referral to Home Health Primary Care Physician: PCP None - Discharge Diagnosis/Problem(s) (1) Delivery by section SNOMED Code(s): 883935255 ICD Code: [id number] - Status: Acute Priority: High Current Visit: Yes (2) Failure of descent in labor, delivered, current hospitalization SNOMED Code(s): 319528709, 056065943 ICD Code: O62.2 - OTHER UTERINE INERTIA Status: Acute Priority: High Current Visit: Yes (3) 40 weeks gestation of SNOMED Code(s): 65285498 ICD Code: Z3A.40 - 40 WEEKS GESTATION OF Status: Acute Priority: High Current Visit: Yes - Patient Instructions Diet: Usual Diet as Tolerated, Drink 8-10+ Glasses/Day Activity: As Tolerated, No Strenuous Activities Driving: May Drive Today Driving, Other: Sitz baths for perineal comfort Showering/Bathing: May Shower Wound/Incision Care: Keep Operative Site/Wound Site Clean and Dry Notify Provider of: Fever, Increased Pain, Swelling and Redness, Drainage, Nausea and/or Vomiting - Discharge Plan *PRESCRIPTION DRUG MONITORING PROGRAM REVIEWED*: No *COPY OF PRESCRIPTION DRUG MONITORING REPORT IN PATIENT EVON: No Prescriptions/Med Rec: Docusate Sodium [Colace] 100 mg PO BID #60 cap Ibuprofen [Motrin] 800 mg PO Q8H PRN #90 tablet PRN Reason: mild pain or fever Acetaminophen/oxyCODONE [Percocet 325-5 MG] 1 tab PO Q4H PRN #30 tablet PRN Reason: Pain (Moderate 4-6) Home Medications: Home Meds Levothyroxine 62.5 mcg PO ACBREAKFAST 02/14/20 [History] Pnv No.95/Ferrous Fum/Folic AC [ Vitamin Tablet] 1 each PO DAILYBH 02/14/20 [History] Acetaminophen/oxyCODONE [Percocet 325-5 MG] 1 tab PO Q4H PRN #30 tablet 03/05/20 [Rx] Docusate Sodium [Colace] 100 mg PO BID #60 cap 03/05/20 [Rx] Ibuprofen [Motrin] 800 mg PO Q8H PRN #90 tablet 03/05/20 [Rx] - Discharge Summary/Plan Comment DC Time >30 min.: Yes - General Info Date of Service: 03/05/20 Admission Dx/Problem (Free Text: 29YO G1 now P1 s/p primary low transverse due to failure to descent at 40+4w GA Patient came ruptured 03/02/20 at 8am. Progressed on her own to full dilation. But station would not progress pass 0. Functional Status: Reports: Pain Controlled - Review of Systems General: Reports: No Symptoms HEENT: Reports: No Symptoms Pulmonary: Reports: No Symptoms Cardiovascular: Reports: No Symptoms Gastrointestinal: Reports: No Symptoms Genitourinary: Reports: No Symptoms Musculoskeletal: Reports: No Symptoms Skin: Reports: No Symptoms Neurological: Reports: No Symptoms Psychiatric: Reports: No Symptoms - Patient Data Vitals - Most Recent: Last Vital Signs Temp 97.5 F 03/05/20 04:00 Pulse 78 03/05/20 04:00 Resp 16 03/05/20 04:00 BP 107/71 03/05/20 04:00 Pulse Ox 97 03/05/20 04:00 Weight - Most Recent: 196 lb Med Orders - Current: Current Medications Bisacodyl (Dulcolax) 10 mg RECTAL ONETIME PRN PRN Reason: Constipation Butorphanol Tartrate (Stadol) 1 mg IVPUSH Q1H PRN PRN Reason: Pain Last Admin: 03/02/20 20:47 Dose: 1 mg Documented by: Carboprost Tromethamine (Hemabate Ds) 250 mcg IM ASDIRECTED PRN PRN Reason: Post Hemorrhage Diphenhydramine HCl (Benadryl) 25 mg IVPUSH Q6H PRN PRN Reason: Itching or Nausea Docusate Sodium (Colace) 100 mg PO BID [facility] Last Admin: 03/04/20 20:01 Dose: 100 mg Documented by: Emollient Ointment (Lansinoh Hpa) 0 gm TOP ASDIRECTED PRN PRN Reason: Sore Nipples Last Admin: 03/04/20 06:52 Dose: 7 gram Documented by: Fentanyl (Sublimaze) 50 mcg IVPUSH Q5M PRN PRN Reason: Pain (severe 7-10) Lactated Ringer's (Ringers, Lactated) 1,000 mls @ 150 mls/hr IV ASDIRECTED [facility] Last Admin: 03/03/20 23:26 Dose: 150 mls/hr Documented by: Oxytocin/Sodium Chloride (Oxytocin 30 Unit/500 Ml-Ns) 30 unit in 500 mls @ 999 mls/hr IV TITRATE [facility] Tranexamic Acid 1,000 mg/ (Sodium Chloride) 110 mls @ 660 mls/hr IV ONETIME PRN PRN Reason: Bleeding Oxytocin/Sodium Chloride (Oxytocin 30 Unit/500 Ml-Ns) 30 unit in 500 mls @ 2 mls/hr IV TITRATE [facility]; Protocol Last Titration: 03/03/20 06:15 Dose: 10 munits/min, 10 mls/hr Documented by: Lactated Ringer's (Ringers, Lactated) 1,000 mls @ 125 mls/hr IV ASDIRECTED [facility] Tranexamic Acid 1,000 mg/ (Sodium Chloride) 110 mls @ 660 mls/hr IV ONETIME PRN PRN Reason: Bleeding Ibuprofen (Motrin) 800 mg PO Q8H PRN PRN Reason: mild pain or fever Last Admin: 03/04/20 20:01 Dose: 800 mg Documented by: Levothyroxine Sodium (Levothyroxine) 62.5 mcg PO ACBREAKFAST [facility] Last Admin: 03/04/20 08:19 Dose: 62.5 mcg Documented by: Lidocaine HCl (Xylocaine 1%) 50 ml INJECT ONETIME PRN PRN Reason: Laceration repair Methylergonovine Maleate (Methergine) 0.2 mg IM ASDIRECTED PRN PRN Reason: Post Hemorrhage Methylergonovine Maleate (Methergine) 0.2 mg IM ONETIME PRN PRN Reason: Excessive Vaginal Bleeding Misoprostol (Cytotec) 200 mcg PO ONETIME PRN PRN Reason: Post Hemorrhage Misoprostol (Cytotec) 1,000 mcg RECTAL ONETIME PRN PRN Reason: excessive bleeding Ondansetron HCl (Zofran) 4 mg IVPUSH Q6H PRN PRN Reason: Nausea/Vomiting Ondansetron HCl (Zofran) 4 mg IVPUSH Q4H PRN PRN Reason: Nausea/Vomiting Oxycodone/Acetaminophen (Percocet 325-5 Mg) 1 tab PO ONETIME PRN PRN Reason: Pain (moderate 4-6) Last Admin: 03/05/20 03:15 Dose: 1 tab Documented by: Oxycodone/Acetaminophen (Percocet 325-5 Mg) 1 tab PO Q4H PRN PRN Reason: Pain (moderate 4-6) Oxycodone/Acetaminophen (Percocet 325-5 Mg) 2 tab PO Q4H PRN PRN Reason: Pain (moderate 4-6) Oxytocin (Pitocin) 10 unit IM ASDIRECTED PRN PRN Reason: Excessive Vaginal Bleeding Sodium Chloride (Saline Flush) 10 ml FLUSH ASDIRECTED PRN PRN Reason: Keep Vein Open Sodium Chloride (Saline Flush) 2.5 ml FLUSH ASDIRECTED PRN PRN Reason: Keep Vein Open Sodium Chloride (Normal Saline) 10 ml IV ASDIRECTED PRN PRN Reason: IV Use Sterile Water (Sterile Water For Irrigation) 1,000 ml IRR ASDIRECTED PRN PRN Reason: delivery Terbutaline Sulfate (Brethine) 0.25 mg SUBCUT ASDIRECTED PRN PRN Reason: Tacysystole Discontinued Medications Citric Acid/Sodium Citrate (Bicitra Solution) 30 ml PO ONETIME ONE Stop: 03/03/20 11:45 Last Admin: 03/03/20 16:29 Dose: Not Given Documented by: Fentanyl (Sublimaze) Confirm Administered Dose 100 mcg .ROUTE .STK-MED ONE Stop: 03/02/20 22:43 Last Admin: 03/03/20 16:29 Dose: Not Given Documented by: Fentanyl (Sublimaze) Confirm Administered Dose 100 mcg .ROUTE .STK-MED ONE Stop: 03/03/20 09:24 Last Admin: 03/03/20 16:29 Dose: Not Given Documented by: Fentanyl (Sublimaze) Confirm Administered Dose 100 mcg .ROUTE .STK-MED ONE Stop: 03/03/20 11:42 Ropivacaine (Naropin 0.2%) Confirm Administered Dose 100 mls @ as directed .ROUTE .STK-MED ONE Stop: 03/02/20 22:43 Last Admin: 03/03/20 16:29 Dose: Not Given Documented by: Ropivacaine (Naropin 0.2%) Confirm Administered Dose 100 mls @ as directed .ROUTE .ST-MED ONE Stop: 03/03/20 09:24 Last Admin: 03/03/20 16:29 Dose: Not Given Documented by: Ampicillin Sodium 2 gm/ Sodium (Chloride) 100 mls @ 200 mls/hr IV ONETIME ONE Stop: 03/03/20 11:35 Last Admin: 03/03/20 11:17 Dose: 200 mls/hr Documented by: Ampicillin Sodium 1 gm/ Sodium (Chloride) 50 mls @ 100 mls/hr IV Q4H [facility] Last Admin: 03/04/20 08:29 Dose: Not Given Documented by: Cefazolin Sodium/Dextrose 2 gm (/ Premix) 50 mls @ 100 mls/hr IV ONETIME ONE Stop: 03/03/20 12:13 Last Admin: 03/04/20 08:29 Dose: Not Given Documented by: Ketorolac Tromethamine (Toradol) Confirm Administered Dose 30 mg .ROUTE .STK-MED ONE Stop: 03/03/20 11:52 Ketorolac Tromethamine (Toradol) 30 mg IVPUSH Q6H [facility] Stop: 03/04/20 13:31 Last Admin: 03/04/20 14:00 Dose: 30 mg Documented by: Lidocaine/Epinephrine (Xylocaine 2% With Epinephrine 1:100,000) 20 ml .ROUTE .STK-MED ONE Stop: 03/03/20 11:40 Morphine Sulfate (Duramorph Pf) Confirm Administered Dose 10 mg .ROUTE .STK-MED ONE Stop: 03/03/20 11:42 Ondansetron HCl (Zofran) Confirm Administered Dose 4 mg .ROUTE .STK-MED ONE Stop: 03/03/20 11:52 Oxytocin (Pitocin) Confirm Administered Dose 20 unit .ROUTE .STK-MED ONE Stop: 03/03/20 11:52 - Exam General: Reports: Alert, Oriented, Cooperative, No Acute Distress HEENT: Reports: Pupils Equal, Pupils Reactive, Mucous Membr. Moist/[place] Neck: Reports: Supple Lungs: Reports: Clear to Auscultation, Normal Respiratory Effort Cardiovascular: Reports: Regular Rate, Regular Rhythm GI/Abdominal Exam: Normal Bowel Sounds, Soft, Non-Tender, No Organomegaly, No Distention (Female) Exam: Normal External Exam, Enlarged Uterus ( uterus, U-1 firm), Vaginal Bleeding (Moderate rubra lochia, no clots) Rectal (Female) Exam: Deferred Back Exam: Reports: Normal Inspection, Full Range of Motion Extremities: Normal Inspection, Normal Range of Motion, Non-Tender, No Pedal Edema, Normal Capillary Refill Skin: Reports: Warm, Dry, Intact Wound/Incisions: Reports: Dressing Dry and Intact (Scant to small old blood noted.-), No Drainage (Approximated, hemostatic, no new drainage noted) Neurological: Reports: No New Focal Deficit Psy/Mental Status: Reports: Alert, Normal Affect, Normal Mood
[2020-03-05] MEDS: Ibuprofen 800 MG Tab PO PRN ×2 (08:08→15:45)
[2020-03-05] MEDS: Levothyroxine 125 MCG Tab PO SCH (08:23)
[2020-03-05] MEDS: Docusate Sodium 100 MG Cap PO SCH (10:06)
[2020-03-05] MEDS: Lanolin 100% Cream 7 GM Tube TOP PRN (10:11)
[2020-03-05] MEDS: Acetaminophen/oxyCODONE 325-5 MG Tab PO PRN ×2 (12:14→15:44)
== END 2020-03-05 17:00 | disposition home or self-care (01) | DRG 788 ==
LOC: MW.OBCHECK 06:48 → MW.OB 06:49 → MW.OBCHECK 08:00 → OBSVTOIN 03-03 12:24 → MW.OB 03-03 15:52
PROVIDERS: ADMIT Obstetrics & Gynecology; ATTEND Obstetrics & Gynecology
PROC: 10D00Z1 Extraction of Products of Conception, Low, Open Approach (ICD-10-PCS; principal; 2020-03-03)
DX: O48.0 Post-term pregnancy (principal); O62.2 Other uterine inertia; O99.284 Endocrine, nutritional and metabolic diseases complicating childbirth; E03.9 Hypothyroidism, unspecified; O77.0 Labor and delivery complicated by meconium in amniotic fluid; O69.81X0 Labor and delivery complicated by cord around neck, without compression, not applicable or unspecified; Z3A.40 40 weeks gestation of pregnancy; Z37.0 Single live birth; Z79.890 Hormone replacement therapy; Z20.828 Contact with and (suspected) exposure to other viral communicable diseases
CPT/HCPCS: 36415; 51702; 59025; 84112; 85014; 85018; 85027; 86592; 86850; 86900; 86901; A9270-GY; J0290; J0595; J1885; J2270; J2405; J2590; J2795; J3010; J7050; J7120; U0002